=== PATIENT | female | born 1965 | race Two or more races ===

== ENCOUNTER 2021-11-15 09:08 | Emergency (ER) | payer BC, MEDICAID ==
[~2021-11-15] VITALS: Ht 162.6 cm; Wt 81.6 kg
[2021-11-15 09:51] VITALS: BP 141/59
[2021-11-15] MEDS ORDERED: AMOX500T86 PO (10:10)
== END 2021-11-15 10:19 | disposition home or self-care (01) ==
LOC: ER 09:08
DX: S60.221A Contusion of right hand, initial encounter (principal); W54.0XXA Bitten by dog, initial encounter; Y93.89 Activity, other specified; Y92.89 Other specified places as the place of occurrence of the external cause; Y99.8 Other external cause status

== ENCOUNTER 2022-10-06 17:27 | Emergency (ER) | payer BC ==
[~2022-10-06] VITALS: Ht 162.6 cm; Wt 102.0 kg
[~2022-10-06 17:27] MED LIST: AMOX500T86 PO
[2022-10-06] MEDS ORDERED: LOSA100T25 PO (18:55)
[2022-10-06] MEDS ORDERED: cloNIDine HCL 0.1 MG TAB PO ONE (21:30)
[2022-10-06 22:04] VITALS: BP 162/97
== END 2022-10-06 18:56 | disposition home or self-care (01) ==
LOC: ER 17:27
DX: I16.0 Hypertensive urgency (principal)
CPT/HCPCS: 93005

== ENCOUNTER 2023-03-05 18:38 | Inpatient (IN) | payer BC ==
[~2023-03-05] VITALS: Ht 162.6 cm; Wt 108.2 kg
[~2023-03-05 18:38] MED LIST changes: +LOSA100T25 PO
[2023-03-05 19:25] LABS: Basophils # (auto) 0.5 10 ^3/uL (0-0.2); Basophils % (auto) 4.1 % (0.0-2.0); Eosinophils # (auto) 0.2 10 ^3/uL (0-0.8); Eosinophils % (auto) 1.8 % (0.0-7.0); Hematocrit 45.2 % (36.0-46.0); Hemoglobin 15.5 g/dL (12.2-16.2); Lymphocytes # (auto) 3.4 10 ^3/uL (0.4-5.4); Lymphocytes % (auto) 27.4 % (10.0-50.0); Mean Corpuscular Hemoglobin 30.7 pg (28.0-32.0); Mean Corpuscular Hgb Conc. 34.2 g/dL (32.0-36.0); Mean Corpuscular Volume 89.8 fL (80.0-100.0); Monocytes # (auto) 0.5 10 ^3/uL (0-1.3); Monocytes % (auto) 3.9 % (0.0-12.0); Neutrophils # (auto) 7.8 10 ^3/uL (1.6-8.6); Neutrophils % (auto) 62.8 % (37.0-80.0); Nucleated Red Blood Cells % 0.2 %; Red Blood Cells 5.04 10^6/uL (4.0-5.20); Red Cell Distribution Width 12.9 % (11.8-14.3); White Blood Cell 12.5 10^3/uL (4.4-10.8)
[2023-03-05 19:42] LABS: INR 0.92 (0.9-1.15); Partial Thromboplastin Time 28.2 sec (24.6-33.4)
[2023-03-05 19:47] LABS: Albumin 3.6 g/dL (3.4-5.0); Magnesium 2.3 mg/dL (1.6-2.6)
[2023-03-05 19:51] LABS: BUN/Creatinine Ratio 19.6 (10.0-20.0); Bilirubin, Total 0.4 mg/dL (0.2-1.0); Total Protein 7.7 g/dL (6.4-8.2)
[2023-03-05 21:22] LABS: Urine WBC None Seen /hpf (0 - 5)
[2023-03-05 21:30] LABS: Urine Bacteria NONE SEEN /hpf (None Seen); Urine Blood Negative /uL (Negative); Urine Specific Gravity 1.023 (1.001-1.035)
[2023-03-05] MEDS ORDERED: LORazepam 0.5 MG TAB PO PRN (21:30)
[2023-03-05] MEDS ORDERED: LORazepam 2MG/ML-1ML VIAL IV PRN (21:30)
[2023-03-05 21:48] LABS: Alcohol, Urine < 3.0 mg/dL (0-10); Amphetamine Screen, Urine NEGATIVE (NEGATIVE); Barbiturate Scree,Urine NEGATIVE (NEGATIVE); Benzodiazephine Screen, Urine NEGATIVE (NEGATIVE); Cannabinoid Screen, Urine NEGATIVE (NEGATIVE); Cocaine Screen, Urine NEGATIVE (NEGATIVE); Opiate Scree,Urine NEGATIVE (NEGATIVE); Phencyclidine Screen, Urine NEGATIVE (NEGATIVE)
[2023-03-05 21:48] LABS: Cholesterol 170 mg/dL (< 200); Triglycerides 163 mg/dL (< 150)
[2023-03-05 21:51] LABS: HDL Cholesterol 49 mg/dL (40-59); LDL Cholesterol 100 mg/dL (< 100)
[2023-03-05] MEDS ORDERED: ACYCLOVIR 400 MG TAB PO ONE (22:15)
[2023-03-05] MEDS ORDERED: DOXYCYCLINE 100 MG TAB/CAP PO ONE (22:15)
[2023-03-05] MEDS ORDERED: DexAMETHasone 4 MG TAB PO ONE (22:15)
[2023-03-06] MEDS ORDERED: MORPHINE SULFATE INJ 2 MG/ml SYRG IV PRN ×2 (01:00)
[2023-03-06] MEDS ORDERED: NITROGLYCERIN 0.4 MG SL TAB SL PRN (01:00)
[2023-03-06] MEDS ORDERED: ONDANSETRON HCL 4 MG/2 ML VIAL IV PRN (01:00)
[2023-03-06] MEDS ORDERED: ACETAMINOPHEN 325 MG TAB PO PRN (01:00)
[2023-03-06] MEDS ORDERED: HYDROcodone-ACET 5/325MG TAB PO PRN (01:00)
[2023-03-06] MEDS ORDERED: DOCUSATE SOD 100 MG CAP PO PRN (01:00)
[2023-03-06] MEDS: SODIUM CHLORIDE 0.9% 1,000 ML IV SCH ×2 (01:24→17:44)
[2023-03-06 05:00] VITALS: BP 123/76
[2023-03-06 05:08] VITALS: BP 123/76
[2023-03-06 05:09] VITALS: BP 123/76
[2023-03-06] MEDS: ACYCLOVIR 400 MG TAB PO SCH ×5 (06:00→22:10)
[2023-03-06 09:00] VITALS: BP 124/79
[2023-03-06] MEDS: DOXYCYCLINE 100 MG TAB/CAP PO SCH ×2 (09:20→22:11)
[2023-03-06] MEDS: ASPirin 81 mg TAB PO SCH (09:22)
[2023-03-06 22:00] VITALS: BP 100/68
[2023-03-06] MEDS: FLUTICASONE PROP NASAL SPR 0.05 % (50MCG) 16GM EACHNOSTRI SCH (22:00)
[2023-03-06] MEDS: ATORVASTATIN 20 MG TAB PO SCH (22:10)
[2023-03-07 05:00] VITALS: BP 100/56
[2023-03-07 05:44] LABS: Basophils # (auto) 0 10 ^3/uL (0-0.2); Basophils % (auto) 0.1 % (0.0-2.0); Eosinophils # (auto) 0 10 ^3/uL (0-0.8); Hematocrit 40.8 % (36.0-46.0); Hemoglobin 13.7 g/dL (12.2-16.2); Lymphocytes # (auto) 2.5 10 ^3/uL (0.4-5.4); Lymphocytes % (auto) 12.3 % (10.0-50.0); Mean Corpuscular Hemoglobin 30.6 pg (28.0-32.0); Mean Corpuscular Hgb Conc. 33.7 g/dL (32.0-36.0); Mean Corpuscular Volume 90.7 fL (80.0-100.0); Monocytes % (auto) 4.8 % (0.0-12.0); Neutrophils # (auto) 16.7 10 ^3/uL (1.6-8.6); Neutrophils % (auto) 82.8 % (37.0-80.0); Nucleated Red Blood Cells % 0.2 %; Red Blood Cells 4.49 10^6/uL (4.0-5.20); White Blood Cell 20.2 10^3/uL (4.4-10.8)
[2023-03-07] MEDS: ACYCLOVIR 400 MG TAB PO SCH ×6 (06:01→21:43)
[2023-03-07 06:33] LABS: Potassium 4.4 mmol/L (3.5-5.1)
[2023-03-07 06:46] LABS: Albumin 2.9 g/dL (3.4-5.0); BUN/Creatinine Ratio 24.6 (10.0-20.0); Bilirubin, Total 0.4 mg/dL (0.2-1.0); Calcium 9.2 mg/dL (8.5-10.1); Total Protein 6.9 g/dL (6.4-8.2)
[2023-03-07 09:00] VITALS: BP 115/70
[2023-03-07] MEDS: DOXYCYCLINE 100 MG TAB/CAP PO SCH ×2 (09:17→21:43)
[2023-03-07] MEDS: ASPirin 81 mg TAB PO SCH (09:17)
[2023-03-07] MEDS: FLUTICASONE PROP NASAL SPR 0.05 % (50MCG) 16GM EACHNOSTRI SCH ×2 (09:23→21:43)
[2023-03-07 13:00] VITALS: BP_SYST 108; BP_SYST 111; BP_DIAS 67; BP_DIAS 72
[2023-03-07] MEDS: SODIUM CHLORIDE 0.9% 1,000 ML IV SCH (15:00)
[2023-03-07 16:53] VITALS: BP 138/81
[2023-03-07] MEDS: ATORVASTATIN 20 MG TAB PO SCH (21:43)
[2023-03-07 22:00] VITALS: BP 137/74
[2023-03-08] MEDS: SODIUM CHLORIDE 0.9% 1,000 ML IV SCH (02:32)
[2023-03-08 05:00] VITALS: BP 120/75
[2023-03-08] MEDS: ACYCLOVIR 400 MG TAB PO SCH ×3 (05:35→15:40)
[2023-03-08 06:51] LABS: BUN/Creatinine Ratio 28.6 (10.0-20.0); Calcium 8.6 mg/dL (8.5-10.1); Potassium 3.9 mmol/L (3.5-5.1)
[2023-03-08 07:01] LABS: Basophils # (auto) 0.1 10 ^3/uL (0-0.2); Basophils % (auto) 0.3 % (0.0-2.0); Eosinophils # (auto) 0 10 ^3/uL (0-0.8); Eosinophils % (auto) 0.3 % (0.0-7.0); Hematocrit 41.9 % (36.0-46.0); Hemoglobin 14.2 g/dL (12.2-16.2); Lymphocytes # (auto) 5.3 10 ^3/uL (0.4-5.4); Mean Corpuscular Hemoglobin 30.5 pg (28.0-32.0); Mean Corpuscular Hgb Conc. 33.9 g/dL (32.0-36.0); Mean Corpuscular Volume 89.9 fL (80.0-100.0); Monocytes # (auto) 0.9 10 ^3/uL (0-1.3); Monocytes % (auto) 5.8 % (0.0-12.0); Neutrophils # (auto) 8.8 10 ^3/uL (1.6-8.6); Neutrophils % (auto) 58.6 % (37.0-80.0); Nucleated Red Blood Cells % 0.1 %; Red Blood Cells 4.66 10^6/uL (4.0-5.20); Red Cell Distribution Width 12.9 % (11.8-14.3); White Blood Cell 15.1 10^3/uL (4.4-10.8)
[2023-03-08 08:00] VITALS: BP 124/69
[2023-03-08 09:00] VITALS: BP 124/69
[2023-03-08] MEDS: ASPirin 81 mg TAB PO SCH (09:26)
[2023-03-08] MEDS: DOXYCYCLINE 100 MG TAB/CAP PO SCH (09:26)
[2023-03-08] MEDS: FLUTICASONE PROP NASAL SPR 0.05 % (50MCG) 16GM EACHNOSTRI SCH (09:27)
[2023-03-08] MEDS ORDERED: ACYC-163 PO (11:11)
[2023-03-08] MEDS ORDERED: ATOR20TA50 PO (11:11)
[2023-03-08 12:06] LABS: Hepatitis B Surface Antibody Negative (Negative)
[2023-03-08 13:24] VITALS: BP 124/69
[2023-03-08 14:35] LABS: Hepatitis C Antibody Negative (Negative)
== END 2023-03-08 15:49 | disposition home or self-care (01) | DRG 101 ==
LOC: ER 18:38 → TELE 03-06 00:53 → TELE-WESTW 03-06 03:47
PROVIDERS: ADMIT Nurse Practitioner Family; ATTEND Hospitalist
PROC: 4A00X4Z Measurement of Central Nervous Electrical Activity, External Approach (ICD-10-PCS; principal; 2023-03-07)
DX: R56.9 Unspecified convulsions (principal); R29.810 Facial weakness; D72.829 Elevated white blood cell count, unspecified; F41.9 Anxiety disorder, unspecified; I10 Essential (primary) hypertension; R20.2 Paresthesia of skin; R25.3 Fasciculation; E07.9 Disorder of thyroid, unspecified; R73.03 Prediabetes; Z79.82 Long term (current) use of aspirin; Z79.899 Other long term (current) drug therapy; Z80.52 Family history of malignant neoplasm of bladder; Z90.710 Acquired absence of both cervix and uterus
CPT/HCPCS: 36415; 70450; 70551; 71045; 72125; 80048; 80053; 80061; 80307; 81001; 82306; 82607; 83036; 83735; 83880; 84484; 85025; 85610; 85730; 86706; 86803; 93005; 93886; 95819; G0378

== ENCOUNTER → 2023-06-18 | Outpatient (CLI) | payer BC ==
[~2023-06-18] VITALS: Ht 162.6 cm; Wt 99.3 kg
[~2023-06-18] MED LIST changes: +ACYC1TAB2 PO; +ADENOSINE 83 MG in GIVE UN-DILUTED 0 ML IV ONE; -AMOX500T86 PO; +ATOR20TA50 PO
== END | disposition home or self-care (01) ==
LOC: XYW 08:12
PROVIDERS: ATTEND Internal Medicine
DX: R07.89 Other chest pain (principal)
CPT/HCPCS: 93017; J0153; 78452

== ENCOUNTER 2024-01-11 08:12 | Emergency (ER) | payer BC ==
[~2024-01-11] VITALS: Ht 162.6 cm; Wt 104.0 kg
[~2024-01-11 08:12] MED LIST changes: -ADENOSINE 83 MG in GIVE UN-DILUTED 0 ML IV ONE
[2024-01-11 08:49] LABS: Urine Bacteria FEW /hpf (None Seen); Urine Blood Negative /uL (Negative); Urine Clarity HAZY (Clear); Urine Color Yellow (Yellow); Urine Mucus FEW (None Seen); Urine Protein, UAD TRACE (Negative); Urine Specific Gravity 1.024 (1.001-1.035); Urine Urobilinogen Normal (Negative); Urine WBC 3 /hpf (0 - 5)
[2024-01-11 09:22] LABS: Basophils # (auto) 0.1 10 ^3/uL (0-0.2); Basophils % (auto) 0.8 % (0.0-2.0); Eosinophils # (auto) 0.1 10 ^3/uL (0-0.8); Eosinophils % (auto) 0.9 % (0.0-7.0); Hematocrit 46.3 % (36.0-46.0); Hemoglobin 15.6 g/dL (12.2-16.2); Lymphocytes # (auto) 2.9 10 ^3/uL (0.4-5.4); Lymphocytes % (auto) 27.2 % (10.0-50.0); Mean Corpuscular Hemoglobin 30.2 pg (28.0-32.0); Mean Corpuscular Hgb Conc. 33.7 g/dL (32.0-36.0); Mean Corpuscular Volume 89.6 fL (80.0-100.0); Monocytes # (auto) 0.5 10 ^3/uL (0-1.3); Monocytes % (auto) 4.3 % (0.0-12.0); Neutrophils # (auto) 7.1 10 ^3/uL (1.6-8.6); Neutrophils % (auto) 66.8 % (37.0-80.0); Nucleated Red Blood Cells % 0.1 %; Red Blood Cells 5.17 10^6/uL (4.0-5.20); Red Cell Distribution Width 12.9 % (11.8-14.3); White Blood Cell 10.6 10^3/uL (4.4-10.8)
[2024-01-11 09:37] LABS: INR 0.98 (0.9-1.15); Partial Thromboplastin Time 28.8 SEC (24.5-34.5); Prothrombin Time 10.3 sec (9.3-11.8)
[2024-01-11 09:39] LABS: Alanine Aminotransferase 24 U/L (7-40); Albumin 4.4 g/dL (3.2-4.8); Alkaline Phosphatase 115 U/L (46-116); Anion Gap 7 (5-15); Aspartate Aminotransferase 22 U/L (13-40); BUN/Creatinine Ratio 15.9 (10.0-20.0); Bilirubin, Total 0.5 mg/dL (0.2-1.0); Blood Urea Nitrogen 11 mg/dL (9-23); Calcium 9.5 mg/dL (8.5-10.1); Carbon Dioxide 26 mmol/L (20-30); Chloride 106 mmol/L (98-107); Glucose 135 mg/dL (74-106); Potassium 4.2 mmol/L (3.5-5.1); Sodium 139 mmol/L (136-145); Total Protein 7.5 g/dL (5.7-8.2)
[2024-01-11 10:13] LABS: Lipase 34 U/L (12-53)
[2024-01-11 10:59] VITALS: BP 131/60; PULSE 70; RESP 18; TEMP 97.8; O2SAT 95
[2024-01-11] MEDS ORDERED: SODIUM CHLORIDE 0.9% 1,000 ML IV ONE (11:00)
== END 2024-01-11 10:59 | disposition home or self-care (01) ==
LOC: ER 08:12
DX: R10.31 Right lower quadrant pain (principal); I10 Essential (primary) hypertension; F41.9 Anxiety disorder, unspecified; Z98.890 Other specified postprocedural states; Z79.899 Other long term (current) drug therapy
CPT/HCPCS: 36415; 74176; 80053; 81001; 83690; 85025; 85610; 85730